=== PATIENT | female | born 1965 | race African-American/Black ===

== ENCOUNTER 2017-06-27 03:11 | Inpatient (IN) | payer OTHER ==
[~2017-06-27] VITALS: Ht 172.7 cm; Wt 113.9 kg
[~2017-06-27 03:11] MED LIST: ASPIR 8181 MG PO; ASPIR LOW81 MG PO; CLONIDINE HCL0.1 MG PO; GABAPENTIN300 M2 PO; HYDROCHLOROTHIA25 MG PO; LAXATIVE5 M1 PO; LISINOPRIL10 MG PO; LOPRESSOR50 MG PO; METOPROLOL SUCC50 M1; MIRALAX17 GM/Dose PO; MOTRIN800 MG PO; NEU300 PO; NORCO1 TA1 PO; OMEPRAZOLE DR20 M1 PO; PREVACID SOLUTA15 MG; ROBAXIN500 MG PO; SERTRALINE50 M1 PO; VESICARE5 M1 PO; ZESTRIL20 MG PO; ZESTRIL40 MG PO
[2017-06-27 05:02] LABS: BASOPHIL % 0.4 % (0-2); PLATELET COUNT 169 x10^3mcL (130-400)
[2017-06-27 05:05] LABS: RED CELL DISTRIBUTION WIDTH 16.8 % (11.5-14.5)
[2017-06-27 05:13] LABS: CALCIUM 9.4 mg/dL (8.5-10.1); CARBON DIOXIDE 32.5 mmol/L (21-32); CHLORIDE SERUM 103 mmol/L (98-107); CREATININE SERUM 0.8 mg/dL (0.6-1.0); GFR1 > 60 mL/min; GLUCOSE SERUM 90 mg/dL (74-106); POTASSIUM SERUM 3.1 mmol/L (3.5-5.1); SODIUM SERUM 142 mmol/L (136-145)
[2017-06-27 05:18] LABS: ALKALINE PHOSPHATASE 56 U/L (46-116); ALT/SGPT 20 U/L (14-59); AST/SGOT 16 U/L (15-37); BILIRUBIN TOTAL 0.5 mg/dL (0.20-1.00); LIPASE 82 IU/L (73-393); TOTAL PROTEIN, SERUM 7.5 g/dL (6.4-8.2)
[2017-06-27] MEDS ORDERED: AMLODIPINE (07:40)
[2017-06-27 08:17] LABS: FREE T4 1.3 ng/dL (0.76-1.46); FREE THYROXINE INDEX 3.9 ug/dL (1.4-4.5); MAGNESIUM 1.9 mg/dL (1.8-2.4); T4(THYROXINE) 10.3 ug/dL (4.7-13.3)
[2017-06-27 08:18] LABS: CHOLESTEROL/HDL RATIO 1.9
[2017-06-27 08:44] VITALS: BP 136/78
[2017-06-27 09:00] LABS: T3 TOTAL 0.96 ng/mL
[2017-06-27 11:13] VITALS: BP 136/75
[2017-06-27] MEDS ORDERED: RESTORIL15 MG PO (11:24)
[2017-06-27] MEDS ORDERED: NOR5 PO (11:24)
[2017-06-27] MEDS ORDERED: METOPROLOL SUC200 M2 PO (11:24)
[2017-06-27 12:44] VITALS: BP 117/60
[2017-06-27 16:59] LABS: microscopic required? NO
[2017-06-27 17:12] VITALS: BP 122/74
[2017-06-27 17:22] LABS: UA SPECIFIC GRAVITY 1.015 (1.005-1.035); urine erythrocyte NEGATIVE (NEGATIVE)
[2017-06-27 17:31] LABS: AMPHETAMINE QUAL UR NONE DETECTED (NEG <=1000)
[2017-06-27 20:52] VITALS: BP 116/54
[2017-06-28 04:46] VITALS: BP 124/83
[2017-06-28 07:30] VITALS: BP 136/80
[2017-06-28 07:30] LABS: BASOPHIL % 0.5 % (0-2); PLATELET COUNT 154 x10^3mcL (130-400)
[2017-06-28 07:38] LABS: RED CELL DISTRIBUTION WIDTH 16.8 % (11.5-14.5)
[2017-06-28 07:46] LABS: CALCIUM 8.6 mg/dL (8.5-10.1); CARBON DIOXIDE 28.1 mmol/L (21-32); CHLORIDE SERUM 108 mmol/L (98-107); CREATININE SERUM 0.7 mg/dL (0.6-1.0); GFR1 > 60 mL/min; GLUCOSE SERUM 72 mg/dL (74-106); POTASSIUM SERUM 3.8 mmol/L (3.5-5.1); SODIUM SERUM 145 mmol/L (136-145)
[2017-06-28] MEDS ORDERED: COL100 PO (10:02)
[2017-06-28] MEDS ORDERED: PRI20 PO (10:03)
[2017-06-28] MEDS ORDERED: BEN10 PO (10:08)
[2017-06-28 11:47] VITALS: Ht 172.7 cm; Wt 113.9 kg
== END 2017-06-28 14:24 | disposition home or self-care (01) | DRG 254 ==
LOC: ED 03:11 → DU 06:56
PROVIDERS: Emergency Medicine; ADMIT Family Medicine
DX: K59.00 Constipation, unspecified (principal); G62.9 Polyneuropathy, unspecified; I10 Essential (primary) hypertension; E87.6 Hypokalemia; R73.03 Prediabetes; I25.2 Old myocardial infarction; G89.29 Other chronic pain; M54.5 Low back pain; Z98.84 Bariatric surgery status; Z68.38 Body mass index [BMI] 38.0-38.9, adult; Z88.0 Allergy status to penicillin; Z90.710 Acquired absence of both cervix and uterus; I25.10 Atherosclerotic heart disease of native coronary artery without angina pectoris
CPT/HCPCS: 82962; 83880; 84439; J0500; J1956; J2270; J2405; J3480; J7030; Q0092; Q9967

== ENCOUNTER 2018-03-13 13:34 | Inpatient (IN) | payer OTHER ==
[~2018-03-13] VITALS: Ht 172.7 cm; Wt 79.1 kg
[~2018-03-13 13:34] MED LIST changes: +AMLODIPINE; +BEN10 PO; +COL100 PO; +METOPROLOL SUC200 M2 PO; +NOR5 PO; +PRI20 PO; +RESTORIL15 MG PO
[2018-03-13 13:39] VITALS: Ht 172.7 cm; Wt 79.1 kg
[2018-03-13 14:29] LABS: BASOPHIL % 0.5 % (0-2); PLATELET COUNT 191 x10^3mcL (130-400)
[2018-03-13 14:30] LABS: CALCIUM 9.2 mg/dL (8.5-10.1); CARBON DIOXIDE 33.1 mmol/L (21-32); CHLORIDE SERUM 105 mmol/L (98-107); CREATININE SERUM 0.8 mg/dL (0.6-1.0); GFR1 > 60 mL/min; GLUCOSE SERUM 115 mg/dL (74-106); POTASSIUM SERUM 3.5 mmol/L (3.5-5.1); SODIUM SERUM 145 mmol/L (136-145)
[2018-03-13 14:36] LABS: ALBUMIN 3.8 g/dL (3.4-5.0); ALKALINE PHOSPHATASE 74 U/L (46-116); ALT/SGPT 23 U/L (14-59); AST/SGOT 16 U/L (15-37); BILIRUBIN TOTAL 0.5 mg/dL (0.20-1.00); LIPASE 70 IU/L (73-393); TOTAL PROTEIN, SERUM 6.9 g/dL (6.4-8.2)
[2018-03-13 14:45] LABS: RED CELL DISTRIBUTION WIDTH 15.8 % (11.5-14.5)
[2018-03-13 16:45] LABS: MAGNESIUM 2.1 mg/dL (1.8-2.4); PHOSPHOROUS 4.9 mg/dL (2.5-4.9)
[2018-03-13 16:46] LABS: CHOLESTEROL/HDL RATIO 2.4
[2018-03-13 16:52] LABS: T3 TOTAL 0.84 ng/mL
[2018-03-13 16:56] LABS: FREE T4 1.33 ng/dL (0.76-1.46); FREE THYROXINE INDEX 4.1 ug/dL (1.4-4.5)
[2018-03-13 17:07] VITALS: BP 139/89
[2018-03-13 21:18] VITALS: BP 143/81
[2018-03-14 05:52] VITALS: BP 138/83
[2018-03-14 06:10] LABS: BASOPHIL % 0.6 % (0-2); PLATELET COUNT 189 x10^3mcL (130-400)
[2018-03-14 06:11] LABS: UA SPECIFIC GRAVITY >=1.030 (1.005-1.035); microscopic required? YES; urine erythrocyte NEGATIVE (NEGATIVE)
[2018-03-14 06:13] LABS: AMPHETAMINE QUAL UR NONE DETECTED (NEG <=1000)
[2018-03-14 06:21] LABS: CALCIUM 9.5 mg/dL (8.5-10.1); CARBON DIOXIDE 32.1 mmol/L (21-32); CHLORIDE SERUM 107 mmol/L (98-107); CREATININE SERUM 0.8 mg/dL (0.6-1.0); GFR1 > 60 mL/min; GLUCOSE SERUM 80 mg/dL (74-106); MAGNESIUM 2.1 mg/dL (1.8-2.4); PHOSPHOROUS 4.5 mg/dL (2.5-4.9); POTASSIUM SERUM 3.4 mmol/L (3.5-5.1); SODIUM SERUM 145 mmol/L (136-145)
[2018-03-14 06:57] LABS: RED CELL DISTRIBUTION WIDTH 15.4 % (11.5-14.5)
[2018-03-14 09:45] VITALS: BP 158/108
[2018-03-14 11:28] VITALS: BP 126/88
[2018-03-14 14:21] VITALS: BP 111/73
[2018-03-14 17:42] VITALS: BP 133/83
[2018-03-14 21:23] VITALS: BP 126/74
[2018-03-15 06:19] VITALS: BP 137/80
[2018-03-15 06:52] LABS: CALCIUM 8.6 mg/dL (8.5-10.1); CARBON DIOXIDE 29.7 mmol/L (21-32); CHLORIDE SERUM 108 mmol/L (98-107); CREATININE SERUM 0.7 mg/dL (0.6-1.0); GFR1 > 60 mL/min; GLUCOSE SERUM 79 mg/dL (74-106); PHOSPHOROUS 3.9 mg/dL (2.5-4.9); POTASSIUM SERUM 3.8 mmol/L (3.5-5.1); SODIUM SERUM 146 mmol/L (136-145)
[2018-03-15 07:17] LABS: BASOPHIL % 0.5 % (0-2); PLATELET COUNT 168 x10^3mcL (130-400)
[2018-03-15 07:18] LABS: RED CELL DISTRIBUTION WIDTH 15.4 % (11.5-14.5)
[2018-03-15 09:30] VITALS: BP 152/79
[2018-03-15 18:00] VITALS: BP 116/57
[2018-03-15 21:12] VITALS: BP 122/76
[2018-03-16 05:33] VITALS: BP 146/86
[2018-03-16 06:57] LABS: ALBUMIN 3.7 g/dL (3.4-5.0); ALKALINE PHOSPHATASE 66 U/L (46-116); ALT/SGPT 40 U/L (14-59); AST/SGOT 33 U/L (15-37); BILIRUBIN TOTAL 0.59 mg/dL (0.20-1.00); CALCIUM 9.7 mg/dL (8.5-10.1); CARBON DIOXIDE 29.8 mmol/L (21-32); CHLORIDE SERUM 103 mmol/L (98-107); CREATININE SERUM 0.8 mg/dL (0.6-1.0); GFR1 > 60 mL/min; GLUCOSE SERUM 104 mg/dL (74-106); POTASSIUM SERUM 4.1 mmol/L (3.5-5.1); SODIUM SERUM 140 mmol/L (136-145); TOTAL PROTEIN, SERUM 6.7 g/dL (6.4-8.2)
[2018-03-16 07:13] LABS: BASOPHIL % 0.3 % (0-2); PLATELET COUNT 193 x10^3mcL (130-400)
[2018-03-16 07:14] LABS: RED CELL DISTRIBUTION WIDTH 15.9 % (11.5-14.5)
[2018-03-16] MEDS ORDERED: NORCO1 TA2 PO (16:36)
[2018-03-16 17:27] VITALS: BP 133/80
[2018-03-16 17:47] VITALS: BP 133/80
== END 2018-03-16 19:25 | disposition home or self-care (01) | DRG 263 ==
LOC: ED 13:34 → DU 15:57
PROVIDERS: Emergency Medicine; Family Medicine; Surgery
PROC: 0FT44ZZ Resection of Gallbladder, Percutaneous Endoscopic Approach (ICD-10-PCS; principal; 2018-03-15 12:45)
DX: K80.00 Calculus of gallbladder with acute cholecystitis without obstruction (principal); N17.0 Acute kidney failure with tubular necrosis; I67.4 Hypertensive encephalopathy; I10 Essential (primary) hypertension; I25.2 Old myocardial infarction; G89.29 Other chronic pain; M54.5 Low back pain; Z53.29 Procedure and treatment not carried out because of patient's decision for other reasons; R73.03 Prediabetes; E86.0 Dehydration; I25.10 Atherosclerotic heart disease of native coronary artery without angina pectoris; Z88.0 Allergy status to penicillin; Z90.710 Acquired absence of both cervix and uterus; Z98.84 Bariatric surgery status; Z79.899 Other long term (current) drug therapy; Z82.49 Family history of ischemic heart disease and other diseases of the circulatory system; Z80.9 Family history of malignant neoplasm, unspecified
CPT/HCPCS: 83880; 84439; 94150; 97110-GP; J1885; J1956; J2175; J2250; J2270; J2405; J2550; J3010; J3490; J7030; Q0092; Q0163; Q9966; Q9967

== ENCOUNTER 2018-08-30 17:29 | Emergency (ER) | payer OTHER ==
[~2018-08-30] VITALS: Ht 170.2 cm; Wt 72.6 kg
[~2018-08-30 17:29] MED LIST changes: +NORCO1 TA2 PO
[2018-08-30 19:49] LABS: UA SPECIFIC GRAVITY 1.025 (1.005-1.035); microscopic required? YES; urine erythrocyte NEGATIVE (NEGATIVE)
[2018-08-30 20:15] VITALS: BP 148/96
== END 2018-08-30 20:15 | disposition home or self-care (01) ==
LOC: ED 17:29
PROVIDERS: Emergency Medicine
DX: L25.9 Unspecified contact dermatitis, unspecified cause (principal); N30.90 Cystitis, unspecified without hematuria; I10 Essential (primary) hypertension; Z88.0 Allergy status to penicillin; G89.29 Other chronic pain; Z90.710 Acquired absence of both cervix and uterus
CPT/HCPCS: J1885; J7512; Q0163

== ENCOUNTER 2018-11-09 16:01 | Inpatient (IN) | payer OTHER ==
[~2018-11-09] VITALS: Ht 170.2 cm; Wt 71.7 kg
[2018-11-09 16:03] VITALS: Ht 170.2 cm; Wt 71.7 kg
[2018-11-09 16:37] LABS: BASOPHIL % 0.3 % (0-2); PLATELET COUNT 184 x10^3mcL (130-400)
[2018-11-09 16:39] LABS: RED CELL DISTRIBUTION WIDTH 14.9 % (11.5-14.5)
[2018-11-09 16:45] LABS: CALCIUM 8.5 mg/dL (8.5-10.1); CARBON DIOXIDE 30.3 mmol/L (21-32); CHLORIDE SERUM 108 mmol/L (98-107); CREATININE SERUM 0.8 mg/dL (0.6-1.0); GFR1 > 60 mL/min; GLUCOSE SERUM 139 mg/dL (74-106); POTASSIUM SERUM 4.3 mmol/L (3.5-5.1); SODIUM SERUM 140 mmol/L (136-145)
[2018-11-09 16:50] LABS: ALKALINE PHOSPHATASE 48 U/L (46-116); ALT/SGPT 126 U/L (14-59); AST/SGOT 44 U/L (15-37); BILIRUBIN TOTAL 0.4 mg/dL (0.20-1.00)
[2018-11-09 16:56] LABS: ALBUMIN 3.3 g/dL (3.4-5.0); TOTAL PROTEIN, SERUM 5.8 g/dL (6.4-8.2)
[2018-11-09] MEDS ORDERED: LOSARTAN POTASS1 TA6 PO (18:53)
[2018-11-09 19:11] LABS: MAGNESIUM 1.6 mg/dL (1.8-2.4); PHOSPHOROUS 3.7 mg/dL (2.5-4.9)
[2018-11-09 19:18] LABS: CHOLESTEROL/HDL RATIO 2.1
[2018-11-09 20:07] VITALS: BP 138/83
[2018-11-09] MEDS ORDERED: BACLOFEN20 MG PO (21:03)
[2018-11-09] MEDS ORDERED: NORCO1 TA2 PO (21:04)
[2018-11-09] MEDS ORDERED: METOPROLOL SUCC50 M2 PO (21:04)
[2018-11-09] MEDS ORDERED: PROTONIX40 MG PO (21:10)
[2018-11-09 23:19] VITALS: BP 112/60
[2018-11-10 05:31] VITALS: BP 125/59
[2018-11-10 05:48] VITALS: BP 126/65
[2018-11-10 07:04] LABS: BASOPHIL % 0.5 % (0-2); PLATELET COUNT 152 x10^3mcL (130-400)
[2018-11-10 07:14] LABS: CALCIUM 8.5 mg/dL (8.5-10.1); CARBON DIOXIDE 30.1 mmol/L (21-32); CHLORIDE SERUM 109 mmol/L (98-107); CREATININE SERUM 0.8 mg/dL (0.6-1.0); GFR1 > 60 mL/min; GLUCOSE SERUM 85 mg/dL (74-106); POTASSIUM SERUM 4.3 mmol/L (3.5-5.1); SODIUM SERUM 144 mmol/L (136-145)
[2018-11-10 07:41] LABS: RED CELL DISTRIBUTION WIDTH 15.2 % (11.5-14.5)
[2018-11-10 09:00] VITALS: BP 108/67; BP 109/68
[2018-11-10 09:56] LABS: microscopic required? NO
[2018-11-10 10:25] LABS: UA SPECIFIC GRAVITY 1.025 (1.005-1.035); urine erythrocyte NEGATIVE (NEGATIVE)
[2018-11-10 11:02] LABS: BASOPHIL % 0.9 % (0-2); PLATELET COUNT 138 x10^3mcL (130-400)
[2018-11-10 11:50] LABS: AMPHETAMINE QUAL UR NONE DETECTED (See below)
[2018-11-10 12:17] LABS: RED CELL DISTRIBUTION WIDTH 14.9 % (11.5-14.5)
[2018-11-10 12:27] VITALS: BP 134/68
[2018-11-10 16:42] VITALS: BP 98/50
[2018-11-10 20:56] VITALS: BP 124/58
[2018-11-11 05:17] VITALS: BP 106/45
[2018-11-11 08:35] VITALS: BP 135/54
[2018-11-11 12:48] VITALS: BP 99/57
[2018-11-11 14:35] VITALS: BP 99/57
[2018-11-11 14:51] LABS: BASOPHIL % 1.3 % (0-2)
[2018-11-11 14:53] LABS: PLATELET COUNT 116 x10^3mcL (130-400)
[2018-11-11] MEDS ORDERED: PRILOSEC OTC20 M1 PO (16:37)
== END 2018-11-11 17:10 | disposition home or self-care (01) | DRG 244 ==
LOC: ED 16:01 → DU 18:43 → EDBEDREQ 18:44 → DU 19:40
PROVIDERS: Emergency Medicine; Internal Medicine; ADMIT General Practice
PROC: 0DB68ZX Excision of Stomach, Via Natural or Artificial Opening Endoscopic, Diagnostic (ICD-10-PCS; principal; 2018-11-11 10:00)
PROC: 0DJD8ZZ Inspection of Lower Intestinal Tract, Via Natural or Artificial Opening Endoscopic (ICD-10-PCS; 2018-11-11 10:00)
DX: K57.91 Diverticulosis of intestine, part unspecified, without perforation or abscess with bleeding (principal); N17.0 Acute kidney failure with tubular necrosis; K28.4 Chronic or unspecified gastrojejunal ulcer with hemorrhage; D62 Acute posthemorrhagic anemia; E44.1 Mild protein-calorie malnutrition; E66.01 Morbid (severe) obesity due to excess calories; E83.42 Hypomagnesemia; I10 Essential (primary) hypertension; K64.4 Residual hemorrhoidal skin tags; R74.0 Nonspecific elevation of levels of transaminase and lactic acid dehydrogenase [LDH]; G89.29 Other chronic pain; M54.9 Dorsalgia, unspecified; K62.5 Hemorrhage of anus and rectum; K64.1 Second degree hemorrhoids; Z98.84 Bariatric surgery status; Z68.24 Body mass index [BMI] 24.0-24.9, adult; Z88.0 Allergy status to penicillin; Z90.710 Acquired absence of both cervix and uterus; Z87.11 Personal history of peptic ulcer disease; Z90.49 Acquired absence of other specified parts of digestive tract; Z82.49 Family history of ischemic heart disease and other diseases of the circulatory system; Z80.9 Family history of malignant neoplasm, unspecified
CPT/HCPCS: 43235; 45378; C9113; J1200; J1610; J2250; J2270; J2310; J2405; J3010; J3490; J7030; Q9967